=== PATIENT | male | born 1950 | race African-American/Black ===

== ENCOUNTER 2016-12-04 02:32 | Emergency (ER) | payer OTHER ==
--- NOTE | 2016-12-04 03:09 | PROVIDER DOCUMENTATION ---
HPI-General Adult - General Source: patient - History of Present Illness -Gen Adult Nature of Presenting Problems: Pt is a 66 yom who presents to ER with CC of an allergic reaction to his Lisinopril. Pt reports a swollen face, and is swollen on exam. Pt denies any throat swelling or pain. Pt reports the last time he took Lisinopril was Sunday morning. Location of Pain/Injury: reports: face (swollen) Pain Radiation: reports: no radiation Quality of Pain: reports: pressure Severity: reports: moderate Onset/Duration: reports: this morning Timing: reports: still present, getting worse Associated Symptoms: reports: other (Facial swelling) <Glen Gill - Last Filed: 12/04/16 03:22> - History of Present Illness -Gen Adult Onset/Duration: reports: other (onset yesterday morning) <Jose Loyola - Last Filed: 12/04/16 04:20> - General Chief Complaint: Allergic Reaction Stated Complaint: FACIAL SWELLING Time Seen by Provider: 12/04/16 03:00 Allergies/Adverse Reactions: Patient Allergies Allergy/AdvReac Type Severity Reaction Status Date / Time No Known Allergies Allergy Verified 12/04/16 02:36 Home Medications: Atorvastatin Calcium 20 mg PO HS 12/04/16 Lisinopril 20 mg PO DAILY 12/04/16 Review of Systems - Adult - REVIEW OF SYSTEMS - ADULT Constitutional: denies: chills, fever, fatique Eyes: reports: no symptoms reported Ears, Nose, Mouth & Throat: reports: no symptoms reported Cardiovascular: reports: no symptoms reported Respiratory: denies: cough, dyspnea on exertion, excessive sputum production, shortness of breath, wheezing Gastrointestinal: reports: no symptoms reported Genitourinary: reports: no symptoms reported Musculoskeletal: reports: no symptoms reported Integumentary: reports: no symptoms reported Neurological: reports: no symptoms reported Psychiatric: reports: no symptoms reported Endocrine: reports: no symptoms reported Hematologic/Lymphatic: reports: no symptoms reported Allergic/Immunologic: reports: allergic reactions, other (facial swelling). denies: allergic rhinitis, asthma, eczema, food allergy, hay fever All Other Systems: Reviewed and Negative <Glen Gill - Last Filed: 12/04/16 03:22> - REVIEW OF SYSTEMS - ADULT Constitutional: denies: chills, fever Eyes: reports: no symptoms reported Ears, Nose, Mouth & Throat: reports: see HPI. denies: throat swelling Cardiovascular: denies: chest pain Respiratory: denies: shortness of breath Gastrointestinal: denies: abdominal pain, nausea, vomiting Genitourinary: reports: no symptoms reported Musculoskeletal: reports: no symptoms reported Integumentary: reports: no symptoms reported Neurological: reports: no symptoms reported Psychiatric: reports: no symptoms reported Endocrine: reports: no symptoms reported Allergic/Immunologic: reports: no symptoms reported All Other Systems: Reviewed and Negative <Jose Loyola - Last Filed: 12/04/16 04:20> Past History - Adult - PAST MEDICAL HISTORY-ADULT Review of Records: reports: Nursing Assessment Review, Medications Reviewed - IMMUNIZATION STATUS Childhood Immunizations: See Nurse Assessment Flu Vaccine: See Nurse Assessment <Glen Gill - Last Filed: 12/04/16 03:22> - PAST MEDICAL HISTORY-ADULT Review of Records: reports: Old Records Reviewed, Nursing Assessment Review, Medications Reviewed, Social history reviewed & non-contributory. Major Childhood Illnesses: reports: denies history Cardiovascular: reports: HTN Respiratory: reports: denies history Gastrointestinal: reports: denies history Genitourinary: reports: denies history Musculoskeletal: reports: denies history <Jose Loyola - Last Filed: 12/04/16 04:20> Physical Exam-General - PHYSICAL EXAM-ADULT Initial Vital Signs Reviewed: Yes - CONSTITUTIONAL General Appearance: appears well, alert, mild distress - LYMPHATIC Lymphatic: no adenopathy - MUSCULOSKELETAL Back Exam: no CVA tenderness, no vertebral tenderness Extremity: normal range of motion, non-tender, normal gait - SKIN Integumentary: swelling (Lip swelling). negative: diaphoresis, embolic lesions , rash, tenderness, warm - NEUROLOGIC Neurologic: grossly normal, no motor/sensory deficits - PSYCHIATRIC Psych/Mental Status: normal mood/affect, normal thought content, normal thought process, oriented x 3 <Glen Gill - Last Filed: 12/04/16 03:22> - CONSTITUTIONAL General Appearance: alert, no apparent distress - EYES Eyes: other (clear) - HEAD, EARS, NOSE, MOUTH & THROAT HENMT: moist mucous membranes, other (swelling over upper lip, clear throat) - NECK Neck: supple - RESPIRATORY Respiratory: lungs clear - CARDIOVASCULAR Cardiovascular: regular rate, rhythm - GASTROINTESTINAL (ABDOMEN) Abdominal Exam: non tender, soft - MUSCULOSKELETAL Back Exam: normal inspection Extremity: normal range of motion, non-tender - SKIN Integumentary: normal color, normal turgor - NEUROLOGIC Neurologic: grossly normal - PSYCHIATRIC Psych/Mental Status: anxious <Jose Loyola - Last Filed: 12/04/16 04:20> Departure - Departure Certified Medical Emergency: Emergent <Glen Gill - Last Filed: 12/04/16 03:22> - Departure Time of Disposition Order: 04:20 Certified Medical Emergency: Emergent <Jose Loyola - Last Filed: 12/04/16 04:20> - Departure DIAGNOSIS: Angio-edema Qualifiers: Encounter type: initial encounter Qualified Code(s): T78.3XXA - Angioneurotic edema, initial encounter Allergic reaction caused by a drug Qualifiers: Encounter type: initial encounter Qualified Code(s): T78.40XA - Allergy, unspecified, initial encounter Disposition: HOME 01 Condition: Stable Additional Instructions: take 50mg benadryl every 6 hours as needed for swelling and redness stop Lisinopril contact your primary care doctor today for further instructions for managing high blood pressure ED Follow Up Instructions: You have been treated by a care provider in the Emergency Department. These instructions are being provided to you so you can have an understanding of how to care for yourself upon discharge. Upon discharge from the Emergency Department, you are responsible for making arrangements for follow-up care by a physician of your choice. Take all prescribed medications as directed. Return to the Emergency Department immediately for any new or worsening symptoms. You may call the Physician Referral phone number at [phone] to obtain a list of Physicians who are taking new patients. Prescriptions: Prednisone 10 mg PO DAILY #21 tablet Referrals: Joana Harrington MD [Primary Care Provider] - Instructions: Angioedema, [id number], Drug Allergy, [id number] Attestation - Scribe Verification/Attestation Scribe:: Glen Gill Acting as Scribe for:: Jose Loyola Scribe documention review:: This chart was documented by a scribe and accurately reflects the service the provider performed and the decisions made by the provider. <Glen Gill - Last Filed: 12/04/16 03:22> Physician Attestation
[2016-12-04] MEDS ORDERED: BENADRYL IV ONE (03:20)
[2016-12-04] MEDS ORDERED: SOLU-MEDROL IV ONE (03:21)
[2016-12-04 04:18] VITALS: BP 126/80
== END 2016-12-04 04:18 | disposition home or self-care (01) ==
LOC: ED 02:32
DX: T78.3XXA Angioneurotic edema, initial encounter (principal); T46.4X5A Adverse effect of angiotensin-converting-enzyme inhibitors, initial encounter; R22.0 Localized swelling, mass and lump, head; I10 Essential (primary) hypertension; Z79.899 Other long term (current) drug therapy
CPT/HCPCS: 96374; J1200; J2930